=== PATIENT | female | born 1950 | race Caucasian/White ===

== ENCOUNTER 2022-03-10 13:00 | Inpatient (IN) ==
[2022-03-10] MEDS ORDERED: 0.9 % Sodium Chloride 1,000 ML IVC ONE ×3 (13:13→16:11)
[2022-03-10] MEDS ORDERED: Iopamidol - 370 500 ML MLS IVP ONE (13:21)
[2022-03-10 14:00] LABS: Hemoglobin 14.1 g/dL (11.5-15.4)
[2022-03-10 14:05] LABS: Hematocrit 42.1 % (35.3-44.9); Mean Corpuscular HGB Conc 33.5 g/dL (31.6-35.5); Mean Corpuscular Hemoglobin 30.6 pg (28.0-33.3); Mean Corpuscular Volume 91.3 fL (83.0-100.0); Nucleated Red Blood Cells 0.1 /100 WBC (0); Platelet Count 702 K/mcL (140-400); Red Blood Count 4.61 M/mcL (3.82-4.97); Red Cell Distribution Width 13.6 % (11.5-14.5)
[2022-03-10] MEDS ORDERED: Morphine Sulfate 2 MG/ML SYRINGE IVP ONE (14:07)
[2022-03-10] MEDS ORDERED: Ondansetron 4 MG/2 ML VIAL IVP ONE (14:07)
[2022-03-10 14:08] LABS: White Blood Count 30.1 K/mcL (4.3-11.1)
[2022-03-10 14:22] LABS: Albumin 3.3 g/dL (3.5-5.7); Albumin/Globulin Ratio 0.8 (1.1-2.2); Bilirubin,Direct 0.2 mg/dL (0.0-0.2); Bilirubin,Indirect 0.3 mg/dL (0.0-1.0); Bilirubin,Total 0.5 mg/dL (0.3-1.0); Calcium 10.2 mg/dL (8.6-10.3); Globulin 4.4 g/dL (2.4-3.5); Phosphorous 5.6 mg/dL (2.7-4.5); Potassium 4.2 mEq/L (3.5-5.1); Total Protein 7.7 g/dL (6.4-8.9); Troponin I 0.06 ng/mL (< 0.04)
[2022-03-10 14:27] LABS: Monocytes # 4.2 K/mcL (0.0-1.3); Neutrophils # 22.3 K/mcL (1.6-8.9); Platelet Estimate Increased (Normal)
[2022-03-10] MEDS ORDERED: 0.9 % Sodium Chloride 1,000 ML ONE (14:37)
[2022-03-10] MEDS ORDERED: Piperacillin/Tazobactam 3.375 GM in 0.9 % Sodium Chloride Mini Bag 100 ML IVPB ONE (14:46)
[2022-03-10 15:13] LABS: Influenza A PCR Negative (Negative); Influenza B PCR Negative (Negative); Resp. Syncytial Virus PCR Negative (Negative)
[2022-03-10 16:01] LABS: SARS-CoV-2 by PCR (In House) Negative (Negative)
[2022-03-10] MEDS ORDERED: Acetaminophen 325 MG TABLET PO PRN (17:38)
[2022-03-10] MEDS ORDERED: Naloxone 0.4 MG/ML INJ IVP PRN (17:38)
[2022-03-10] MEDS ORDERED: Ondansetron ODT 4 MG TAB.RAPDIS SL PRN (17:38)
[2022-03-10] MEDS ORDERED: *HR* OxyCODONE Immed Rel 5 MG TABLET PO PRN (17:38)
[2022-03-10] MEDS ORDERED: Azithromycin 500 MG in 0.9 % Sodium Chloride 250 ML IVPB SCH (18:00)
[2022-03-10] MEDS ORDERED: Vancomycin (wt based) 1,000 MG VIAL IVPB SCH (18:00)
[2022-03-10] MEDS ORDERED: Vancomycin 1,250 MG/262.5 ML IV.SOLN IVPB ONE (18:00)
[2022-03-10] MEDS ORDERED: cefTRIAXone 1,000 MG in 0.9 % Sodium Chloride 10 ML IVP SCH (18:00)
[2022-03-10] MEDS: 0.9 % Sodium Chloride w KCl 20 MEQ/1,000 ML MLS IVC SCH (18:46)
[2022-03-10 19:18] LABS: Thyroid Stimulating Hormone 2.139 mcIU/mL (0.340-5.600); Troponin I 0.04 ng/mL (< 0.04)
[2022-03-10] MEDS ORDERED: Dextrose Gel 15 GM/37.5 ML TUBE PO PRN ×2 (20:19)
[2022-03-10] MEDS ORDERED: D5% in Water 1,000 ML IVC PRN (20:19)
[2022-03-10] MEDS ORDERED: *HR* Dextrose 50 % in Water (Syg) 50 ML SYRINGE IVP PRN (20:19)
[2022-03-10 20:26] LABS: Amylase,Pleural Fluid 14 Units/L (No Ref Range); Glucose,Pleural Fluid < 10 mg/dL (No Ref Range); LDH,Pleural Fluid > 1200 Units/L (No Ref Range); Total Protein,Pleural Fluid 5.1 g/dL
[2022-03-10] MEDS ORDERED: Dextrose Gel 15 GM/37.5 ML TUBE PO ONE (20:29)
[2022-03-10 20:51] LABS: RBC,Pleural Fluid 3000 RBC/mcL
[2022-03-10 22:41] LABS: Lactate Dehydrogenase 202 Units/L (140-271)
[2022-03-10 23:25] LABS: Appearance of Pleural Fl Hazy (Clear); Basophils,Pleural Fluid 0 %; Eosinophils,Pleural Fluid 0 %; Monocytes,Pleural Fluid 0 %
[2022-03-11 06:00] LABS: Eosinophils % 0.1 %; Hematocrit 34.2 % (35.3-44.9); Immature Granulocytes % 10.3 % (0-4); Lymphocytes # 1.6 K/mcL (0.6-4.6); Lymphocytes % 7.6 %; Mean Corpuscular HGB Conc 32.7 g/dL (31.6-35.5); Mean Corpuscular Hemoglobin 30.1 pg (28.0-33.3); Mean Corpuscular Volume 91.9 fL (83.0-100.0); Mean Platelet Volume 9.2 fL (9.4-12.4); Monocytes # 1.6 K/mcL (0.0-1.3); Monocytes % 7.9 %; Neutrophils # 15.4 K/mcL (1.6-8.9); Platelet Count 505 K/mcL (140-400); Red Blood Count 3.72 M/mcL (3.82-4.97); Red Cell Distribution Width 14.2 % (11.5-14.5); Segmented Neutrophils % 74.1 %; White Blood Count 20.8 K/mcL (4.3-11.1)
[2022-03-11 06:06] LABS: INR 1.2; Prothrombin Time 12.9 Seconds (9.4-12.1)
[2022-03-11 06:25] LABS: Hemoglobin 11.2 g/dL (11.5-15.4)
[2022-03-11 06:35] LABS: Albumin 2.6 g/dL (3.5-5.7); Albumin/Globulin Ratio 0.8 (1.1-2.2); Bilirubin,Total 0.4 mg/dL (0.3-1.0); Calcium 8.7 mg/dL (8.6-10.3); Globulin 3.2 g/dL (2.4-3.5); Magnesium 2.4 mg/dL (1.6-2.6); Phosphorous 4.1 mg/dL (2.7-4.5); Potassium 4.5 mEq/L (3.5-5.1); Total Protein 5.8 g/dL (6.4-8.9); Troponin I 0.25 ng/mL (< 0.04)
[2022-03-11 07:07] LABS: Bacteria,Urine Few per hpf (None-Few); Bilirubin,Urine Negative (Negative); Blood,Urine Negative (Negative); Clarity,Urine Clear (Clear); Color,Urine Light-Yellow (Yellow); Glucose,Urine (UA) Normal (Normal); Ketones,Urine Trace mg/dL (Negative); Leukocyte Esterase,Urine Moderate (Negative); Mucus,Urine Few per lpf (None-Few); Nitrite,Urine Negative (Negative); Protein,Urine 30 mg/dL (Neg-Trace); Specific Gravity,Urine 1.019 (1.010-1.025); Squamous Epithelial Cell,Urine Few per hpf (None-Few); Urobilinogen,Urine Normal (Normal); WBC,Urine 15-30 per hpf (0-3)
[2022-03-11] MEDS: 0.9 % Sodium Chloride w KCl 20 MEQ/1,000 ML MLS IVC SCH (08:16)
[2022-03-11] MEDS ORDERED: Ondansetron 4 MG/2 ML VIAL ONE (08:56)
[2022-03-11] MEDS ORDERED: *HR* Rocuronium Bromide 50 MG/5 ML VIAL ONE ×2 (08:56→11:23)
[2022-03-11] MEDS ORDERED: Lidocaine -MPF 2% 5 ML VIAL ONE (08:56)
[2022-03-11] MEDS ORDERED: *HR* Propofol 200 MG/20 ML VIAL IVP ONE (08:57)
[2022-03-11] MEDS ORDERED: *HR* FentaNYL (PF) 100 MCG/2 ML VIAL ONE (08:57)
[2022-03-11] MEDS ORDERED: Lidocaine HCL 4 ML Topical Solution (Laryng-O-Jet Kit Sterile Pak) TP ONE ×2 (08:59→09:10)
[2022-03-11] MEDS ORDERED: Loratadine 10 MG TABLET PO SCH (09:00)
[2022-03-11] MEDS ORDERED: Ketamine HCL *QUVA* 50mg (1mL) SYRINGE ONE (09:01)
[2022-03-11] MEDS ORDERED: *HR* HYDROmorphone PF 0.5 MG/0.5 ML SYRINGE IVP PRN (09:53)
[2022-03-11] MEDS ORDERED: D5% in Lactated Ringers 1,000 ML IVC ONE (09:55)
[2022-03-11] MEDS ORDERED: EPHEDrine 50 MG/ML VIAL ONE (11:04)
[2022-03-11] MEDS ORDERED: *HR* Phenylephrine 10 MG/ML VIAL ONE (11:05)
[2022-03-11] MEDS ORDERED: Sugammadex Sodium 200 MG/2 ML VIAL IV ONE (11:55)
[2022-03-11] MEDS ORDERED: Albumin Human 5% 12.5 GM/250 ML IV.SOLN ONE ×2 (12:11→12:49)
[2022-03-11] MEDS: Albumin Human 5% 12.5 GM/250 ML IV.SOLN IVC SCH ×4 (12:23→21:05)
[2022-03-11] MEDS ORDERED: Ringers Solution, Lactated 1,000 ML ONE (13:57)
[2022-03-11] MEDS ORDERED: Phenylephrine 20 MG in 0.9 % Sodium Chloride 250 ML IVC SCH (14:00)
[2022-03-11] MEDS ORDERED: Ondansetron 4 MG/2 ML VIAL IVP PRN (15:36)
[2022-03-11] MEDS ORDERED: Gabapentin 300 MG CAPSULE PO SCH (15:36)
[2022-03-11] MEDS ORDERED: Acetaminophen 325 MG TABLET PO PRN (15:36)
[2022-03-11] MEDS ORDERED: D5% in 0.9% NACL 1,000 ML IVC SCH (15:36)
[2022-03-11] MEDS ORDERED: Naloxone 0.4 MG/ML INJ IVP PRN (15:36)
[2022-03-11] MEDS: *HR* OxyCODONE/APAP 7.5/325 TABLET PO PRN ×2 (15:43→22:53)
[2022-03-11] MEDS ORDERED: Ringers Solution, Lactated 1,000 ML IVC ONE (15:47)
[2022-03-11] MEDS: *HR* Heparin 5,000 UNIT/ML VIAL SQ SCH ×2 (16:23→22:31)
[2022-03-11] MEDS: Gabapentin 300 MG CAPSULE PO SCH ×2 (16:23→21:05)
[2022-03-11] MEDS ORDERED: Ampicillin/Sulbactam 3,000 MG in 0.9 % Sodium Chloride Mini Bag 100 ML IVPB SCH (18:00)
[2022-03-11] MEDS: Ampicillin/Sulbactam 3,000 MG in 0.9 % Sodium Chloride Mini Bag 100 ML IVPB SCH (18:04)
[2022-03-11] MEDS ORDERED: Famotidine 20 MG TABLET PO SCH (21:00)
[2022-03-11] MEDS: Sennosides/Docusate Sodium TABLET PO SCH (21:05)
[2022-03-12] MEDS: Ringers Solution, Lactated 1,000 ML IVC SCH ×2 (01:49→15:06)
[2022-03-12] MEDS: Phenylephrine 20 MG in 0.9 % Sodium Chloride 250 ML IVC SCH ×2 (02:50→07:40)
[2022-03-12 03:43] LABS: VBG Ionized Calcium 1.31 mmol/L (1.15-1.35)
[2022-03-12 04:17] LABS: INR 1.2; Prothrombin Time 13.3 Seconds (9.4-12.1)
[2022-03-12 04:19] LABS: Activated Partial Thrombo Time 28.4 Seconds (26.0-36.0); Mean Corpuscular HGB Conc 31.6 g/dL (31.6-35.5); Mean Platelet Volume 8.9 fL (9.4-12.4)
[2022-03-12 04:20] LABS: Hematocrit 31.3 % (35.3-44.9); Hemoglobin 9.9 g/dL (11.5-15.4); Mean Corpuscular Hemoglobin 30.5 pg (28.0-33.3); Mean Corpuscular Volume 96.3 fL (83.0-100.0); Platelet Count 593 K/mcL (140-400); Red Blood Count 3.25 M/mcL (3.82-4.97); Red Cell Distribution Width 14.7 % (11.5-14.5)
[2022-03-12 04:22] LABS: Calcium 8.9 mg/dL (8.6-10.3); Magnesium 2.2 mg/dL (1.6-2.6); Phosphorous 3.8 mg/dL (2.7-4.5); Potassium 4.8 mEq/L (3.5-5.1)
[2022-03-12 04:33] LABS: White Blood Count 40.5 K/mcL (4.3-11.1)
[2022-03-12] MEDS: Ampicillin/Sulbactam 3,000 MG in 0.9 % Sodium Chloride Mini Bag 100 ML IVPB SCH ×4 (05:11→23:44)
[2022-03-12] MEDS: *HR* Heparin 5,000 UNIT/ML VIAL SQ SCH ×3 (05:11→22:15)
[2022-03-12] MEDS: *HR* OxyCODONE/APAP 7.5/325 TABLET PO PRN ×3 (05:51→19:58)
[2022-03-12 08:15] LABS: Troponin I 0.34 ng/mL (< 0.04)
[2022-03-12] MEDS: Sennosides/Docusate Sodium TABLET PO SCH ×2 (08:32→19:57)
[2022-03-12] MEDS: Famotidine 20 MG TABLET PO SCH (08:32)
[2022-03-12] MEDS: Loratadine 10 MG TABLET PO SCH (08:32)
[2022-03-12] MEDS: Gabapentin 300 MG CAPSULE PO SCH ×3 (08:32→19:58)
[2022-03-12] MEDS ORDERED: 0.9 % Sodium Chloride 500 ML IVC ONE (14:02)
[2022-03-13 04:27] LABS: Mean Corpuscular HGB Conc 31.1 g/dL (31.6-35.5)
[2022-03-13 04:29] LABS: Hematocrit 28.3 % (35.3-44.9); Hemoglobin 8.8 g/dL (11.5-15.4); Mean Corpuscular Volume 96.6 fL (83.0-100.0); Mean Platelet Volume 8.7 fL (9.4-12.4); Monocytes # 1.1 K/mcL (0.0-1.3); Platelet Count 385 K/mcL (140-400); Red Blood Count 2.93 M/mcL (3.82-4.97); White Blood Count 27.1 K/mcL (4.3-11.1)
[2022-03-13 04:47] LABS: Albumin 2.5 g/dL (3.5-5.7); Bilirubin,Total 0.4 mg/dL (0.3-1.0); Calcium 8.8 mg/dL (8.6-10.3); Globulin 2.5 g/dL (2.4-3.5); Magnesium 1.9 mg/dL (1.6-2.6); Phosphorous 1.7 mg/dL (2.7-4.5); Potassium 4.4 mEq/L (3.5-5.1)
[2022-03-13] MEDS ORDERED: Potassium Phosphate 44 MEQ in 0.9 % Sodium Chloride 250 ML IVPB PRN (04:57)
[2022-03-13 05:04] LABS: Lymphocytes # 1.6 K/mcL (0.6-4.6); Neutrophils # 23.3 K/mcL (1.6-8.9)
[2022-03-13] MEDS: Ampicillin/Sulbactam 3,000 MG in 0.9 % Sodium Chloride Mini Bag 100 ML IVPB SCH ×3 (05:28→17:27)
[2022-03-13] MEDS: *HR* Heparin 5,000 UNIT/ML VIAL SQ SCH ×3 (05:28→20:54)
[2022-03-13] MEDS: Gabapentin 300 MG CAPSULE PO SCH ×3 (08:24→19:55)
[2022-03-13] MEDS: Famotidine 20 MG TABLET PO SCH (08:24)
[2022-03-13] MEDS: Sennosides/Docusate Sodium TABLET PO SCH ×2 (08:24→19:55)
[2022-03-13] MEDS: *HR* OxyCODONE/APAP 7.5/325 TABLET PO PRN ×3 (08:24→20:06)
[2022-03-13] MEDS: Loratadine 10 MG TABLET PO SCH (08:25)
[2022-03-13] MEDS ORDERED: Aspirin Enteric Coated 81 MG Tablet PO SCH (09:00)
[2022-03-13] MEDS ORDERED: lisinopriL 10 MG TABLET PO ONE (09:03)
[2022-03-14] MEDS ORDERED: Acetaminophen 325 MG TABLET PO PRN (00:33)
[2022-03-14] MEDS ORDERED: Naloxone 0.4 MG/ML INJ IVP PRN (00:33)
[2022-03-14] MEDS ORDERED: Ondansetron 4 MG/2 ML VIAL IVP PRN (00:33)
[2022-03-14] MEDS: Ampicillin/Sulbactam 3,000 MG in 0.9 % Sodium Chloride Mini Bag 100 ML IVPB SCH ×6 (01:06→23:10)
[2022-03-14 04:43] LABS: Eosinophils % 0.6 %; Red Cell Distribution Width 14.8 % (11.5-14.5)
[2022-03-14 04:45] LABS: Eosinophils # 0.2 K/mcL (0.0-0.6); Hemoglobin 8.7 g/dL (11.5-15.4); Immature Granulocytes % 15.2 % (0-4); Lymphocytes # 2.2 K/mcL (0.6-4.6); Lymphocytes % 7.1 %; Mean Corpuscular HGB Conc 31.1 g/dL (31.6-35.5); Mean Corpuscular Hemoglobin 29.9 pg (28.0-33.3); Mean Corpuscular Volume 96.2 fL (83.0-100.0); Monocytes # 1.1 K/mcL (0.0-1.3); Monocytes % 3.7 %; Platelet Count 358 K/mcL (140-400); Red Blood Count 2.91 M/mcL (3.82-4.97); Segmented Neutrophils % 73.4 %
[2022-03-14 04:54] LABS: Neutrophils # 22.2 K/mcL (1.6-8.9)
[2022-03-14 04:55] LABS: White Blood Count 30.3 K/mcL (4.3-11.1)
[2022-03-14 04:56] LABS: Platelet Estimate Normal (Normal)
[2022-03-14 05:01] LABS: Alanine Aminotransferase 70 Units/L (7-52); Albumin 2.4 g/dL (3.5-5.7); Alkaline Phosphatase 69 Units/L (34-104); Aspartate Amino Transferase 57 Units/L (13-39); BUN/Creatinine Ratio 37 (6-26); Bilirubin,Total 0.4 mg/dL (0.3-1.0); Blood Urea Nitrogen 26 mg/dL (8-23); Calcium 8.9 mg/dL (8.6-10.3); Carbon Dioxide 28 mEq/L (23-29); Chloride 108 mEq/L (98-107); Globulin 2.5 g/dL (2.4-3.5); Glucose 94 mg/dL (70-105); Osmolality,Calculated 291 (280-300); Phosphorous 2.1 mg/dL (2.7-4.5); Potassium 4.3 mEq/L (3.5-5.1); Sodium 138 mEq/L (136-145); Total Protein 4.9 g/dL (6.4-8.9)
[2022-03-14 05:10] LABS: VBG Ionized Calcium 1.33 mmol/L (1.15-1.35)
[2022-03-14] MEDS: *HR* Heparin 5,000 UNIT/ML VIAL SQ SCH ×3 (05:35→21:31)
[2022-03-14] MEDS: Famotidine 20 MG TABLET PO SCH (05:35)
[2022-03-14] MEDS: *HR* OxyCODONE/APAP 7.5/325 TABLET PO PRN ×4 (05:45→19:50)
[2022-03-14] MEDS: Aspirin Enteric Coated 81 MG Tablet PO SCH (08:45)
[2022-03-14] MEDS: Sennosides/Docusate Sodium TABLET PO SCH ×2 (08:45→19:50)
[2022-03-14] MEDS: Loratadine 10 MG TABLET PO SCH (08:45)
[2022-03-14] MEDS: Gabapentin 300 MG CAPSULE PO SCH ×3 (08:46→19:50)
[2022-03-15 04:38] LABS: Fluid Source for Cholesterol PLEURAL FLUID; Fluid Source for Triglycerides PLEURAL FLUID
[2022-03-15] MEDS: *HR* OxyCODONE/APAP 7.5/325 TABLET PO PRN ×3 (05:14→19:39)
[2022-03-15] MEDS: Ampicillin/Sulbactam 3,000 MG in 0.9 % Sodium Chloride Mini Bag 100 ML IVPB SCH (05:14)
[2022-03-15] MEDS: *HR* Heparin 5,000 UNIT/ML VIAL SQ SCH ×3 (05:14→22:24)
[2022-03-15] MEDS: Famotidine 20 MG TABLET PO SCH (05:14)
[2022-03-15 05:24] LABS: Red Blood Count 3.02 M/mcL (3.82-4.97); Red Cell Distribution Width 14.7 % (11.5-14.5)
[2022-03-15 05:25] LABS: Hematocrit 29.2 % (35.3-44.9); Hemoglobin 9.2 g/dL (11.5-15.4); Mean Corpuscular HGB Conc 31.5 g/dL (31.6-35.5); Mean Corpuscular Hemoglobin 30.5 pg (28.0-33.3); Mean Corpuscular Volume 96.7 fL (83.0-100.0); Mean Platelet Volume 9.4 fL (9.4-12.4); Platelet Count 433 K/mcL (140-400)
[2022-03-15 05:41] LABS: Alanine Aminotransferase 103 Units/L (7-52); Albumin 2.5 g/dL (3.5-5.7); Albumin/Globulin Ratio 0.8 (1.1-2.2); Alkaline Phosphatase 88 Units/L (34-104); Aspartate Amino Transferase 75 Units/L (13-39); BUN/Creatinine Ratio 28 (6-26); Bilirubin,Total 0.5 mg/dL (0.3-1.0); Blood Urea Nitrogen 17 mg/dL (8-23); Calcium 9.2 mg/dL (8.6-10.3); Carbon Dioxide 28 mEq/L (23-29); Chloride 103 mEq/L (98-107); Globulin 3.1 g/dL (2.4-3.5); Glucose 107 mg/dL (70-105); Magnesium 1.8 mg/dL (1.6-2.6); Osmolality,Calculated 286 (280-300); Potassium 4.4 mEq/L (3.5-5.1); Sodium 137 mEq/L (136-145); Total Protein 5.6 g/dL (6.4-8.9); White Blood Count 35.4 K/mcL (4.3-11.1)
[2022-03-15 05:51] LABS: Platelet Estimate Normal (Normal)
[2022-03-15 05:52] LABS: Monocytes # 2.1 K/mcL (0.0-1.3); Neutrophils # 33.3 K/mcL (1.6-8.9); Stomatocytes 1+ (Not Present)
[2022-03-15] MEDS: Aspirin Enteric Coated 81 MG Tablet PO SCH (09:05)
[2022-03-15] MEDS: Loratadine 10 MG TABLET PO SCH (09:05)
[2022-03-15] MEDS: Gabapentin 300 MG CAPSULE PO SCH ×3 (09:05→19:39)
[2022-03-15] MEDS: Sennosides/Docusate Sodium TABLET PO SCH ×2 (09:05→19:39)
[2022-03-15 11:16] LABS: Cholesterol,Body Fluid 68 mg/dL; Triglycerides,Body Fluid 52 mg/dL
[2022-03-15] MEDS: Cefepime HCl 2,000 MG in 0.9 % Sodium Chloride 10 ML IVP SCH ×2 (11:52→19:38)
[2022-03-16] MEDS: Cefepime HCl 2,000 MG in 0.9 % Sodium Chloride 10 ML IVP SCH ×2 (03:35→12:10)
[2022-03-16 03:45] LABS: Red Cell Distribution Width 14.4 % (11.5-14.5)
[2022-03-16 03:46] LABS: Hematocrit 27.9 % (35.3-44.9); Mean Corpuscular HGB Conc 32.3 g/dL (31.6-35.5); Mean Corpuscular Hemoglobin 30.7 pg (28.0-33.3); Mean Corpuscular Volume 95.2 fL (83.0-100.0); Mean Platelet Volume 9.3 fL (9.4-12.4); Monocytes # 1.7 K/mcL (0.0-1.3); Platelet Count 394 K/mcL (140-400); Red Blood Count 2.93 M/mcL (3.82-4.97); White Blood Count 28.9 K/mcL (4.3-11.1)
[2022-03-16 04:05] LABS: Lymphocytes # 1.2 K/mcL (0.6-4.6); Platelet Estimate Normal (Normal)
[2022-03-16 04:06] LABS: Alanine Aminotransferase 102 Units/L (7-52); Albumin 2.4 g/dL (3.5-5.7); Albumin/Globulin Ratio 0.8 (1.1-2.2); Alkaline Phosphatase 95 Units/L (34-104); Aspartate Amino Transferase 68 Units/L (13-39); BUN/Creatinine Ratio 23 (6-26); Bilirubin,Total 0.5 mg/dL (0.3-1.0); Blood Urea Nitrogen 14 mg/dL (8-23); Calcium 8.9 mg/dL (8.6-10.3); Carbon Dioxide 29 mEq/L (23-29); Chloride 101 mEq/L (98-107); Globulin 2.9 g/dL (2.4-3.5); Glucose 104 mg/dL (70-105); Magnesium 1.6 mg/dL (1.6-2.6); Osmolality,Calculated 279 (280-300); Sodium 134 mEq/L (136-145); Total Protein 5.3 g/dL (6.4-8.9)
[2022-03-16] MEDS: Famotidine 20 MG TABLET PO SCH (06:15)
[2022-03-16] MEDS: *HR* Heparin 5,000 UNIT/ML VIAL SQ SCH ×3 (06:15→22:43)
[2022-03-16] MEDS: Sennosides/Docusate Sodium TABLET PO SCH ×2 (08:28→19:48)
[2022-03-16] MEDS: Loratadine 10 MG TABLET PO SCH (08:28)
[2022-03-16] MEDS: Gabapentin 300 MG CAPSULE PO SCH ×3 (08:28→19:48)
[2022-03-16] MEDS: Aspirin Enteric Coated 81 MG Tablet PO SCH (08:29)
[2022-03-16] MEDS: *HR* OxyCODONE/APAP 7.5/325 TABLET PO PRN ×2 (08:29→22:04)
[2022-03-16] MEDS: cefTRIAXone 2,000 MG in 0.9 % Sodium Chloride 20 ML IVP SCH (19:47)
[2022-03-17] MEDS: *HR* OxyCODONE/APAP 7.5/325 TABLET PO PRN ×2 (07:55→12:42)
[2022-03-17] MEDS: Sennosides/Docusate Sodium TABLET PO SCH ×2 (07:55→20:34)
[2022-03-17] MEDS: Gabapentin 300 MG CAPSULE PO SCH ×3 (07:55→20:31)
[2022-03-17] MEDS: Aspirin Enteric Coated 81 MG Tablet PO SCH (07:55)
[2022-03-17] MEDS: Loratadine 10 MG TABLET PO SCH (07:55)
[2022-03-17] MEDS: Famotidine 20 MG TABLET PO SCH (07:56)
[2022-03-17] MEDS: *HR* Heparin 5,000 UNIT/ML VIAL SQ SCH ×3 (07:56→20:32)
[2022-03-17 11:27] LABS: Hematocrit 23.6 % (35.3-44.9); Hemoglobin 7.7 g/dL (11.5-15.4); Mean Corpuscular HGB Conc 32.6 g/dL (31.6-35.5); Mean Corpuscular Hemoglobin 30.6 pg (28.0-33.3); Mean Corpuscular Volume 93.7 fL (83.0-100.0); Mean Platelet Volume 10.5 fL (9.4-12.4); Nucleated Red Blood Cells 0.1 /100 WBC (0); Platelet Count 403 K/mcL (140-400); Red Blood Count 2.52 M/mcL (3.82-4.97); Red Cell Distribution Width 14.2 % (11.5-14.5); White Blood Count 26.6 K/mcL (4.3-11.1)
[2022-03-17 11:41] LABS: Alanine Aminotransferase 103 Units/L (7-52); Albumin 2.1 g/dL (3.5-5.7); Albumin/Globulin Ratio 0.8 (1.1-2.2); Alkaline Phosphatase 112 Units/L (34-104); Aspartate Amino Transferase 72 Units/L (13-39); BUN/Creatinine Ratio 16 (6-26); Bilirubin,Total 0.6 mg/dL (0.3-1.0); Blood Urea Nitrogen 9 mg/dL (8-23); Calcium 8.3 mg/dL (8.6-10.3); Carbon Dioxide 28 mEq/L (23-29); Chloride 97 mEq/L (98-107); Globulin 2.7 g/dL (2.4-3.5); Glucose 101 mg/dL (70-105); Magnesium 1.4 mg/dL (1.6-2.6); Osmolality,Calculated 269 (280-300); Sodium 130 mEq/L (136-145); Total Protein 4.8 g/dL (6.4-8.9)
[2022-03-17 11:43] LABS: Eosinophils # 0.3 K/mcL (0.0-0.6); Lymphocytes # 1.3 K/mcL (0.6-4.6); Monocytes # 1.3 K/mcL (0.0-1.3); Neutrophils # 23.7 K/mcL (1.6-8.9)
[2022-03-17 11:44] LABS: Platelet Estimate Normal (Normal)
[2022-03-17] MEDS: cefTRIAXone 2,000 MG in 0.9 % Sodium Chloride 20 ML IVP SCH (20:31)
[2022-03-17] MEDS: *HR* HYDROcodone/Acet 5/325 mg TABLET PO PRN (20:34)
[2022-03-18] MEDS: *HR* Heparin 5,000 UNIT/ML VIAL SQ SCH ×3 (05:06→19:57)
[2022-03-18] MEDS: Famotidine 20 MG TABLET PO SCH (05:07)
[2022-03-18] MEDS: *HR* HYDROcodone/Acet 5/325 mg TABLET PO PRN ×4 (05:07→19:56)
[2022-03-18 05:54] LABS: Basophils # 0.1 K/mcL (0.0-0.2); Basophils % 0.3 %; Eosinophils # 0.1 K/mcL (0.0-0.6); Eosinophils % 0.5 %; Hematocrit 28.4 % (35.3-44.9); Hemoglobin 9.2 g/dL (11.5-15.4); Lymphocytes # 1.5 K/mcL (0.6-4.6); Lymphocytes % 6.6 %; Mean Corpuscular HGB Conc 32.4 g/dL (31.6-35.5); Mean Corpuscular Volume 92.5 fL (83.0-100.0); Mean Platelet Volume 9.6 fL (9.4-12.4); Monocytes # 1.7 K/mcL (0.0-1.3); Monocytes % 7.6 %; Neutrophils # 18.5 K/mcL (1.6-8.9); Platelet Count 438 K/mcL (140-400); Red Blood Count 3.07 M/mcL (3.82-4.97); White Blood Count 22.3 K/mcL (4.3-11.1)
[2022-03-18 06:10] LABS: BUN/Creatinine Ratio 14 (6-26); Blood Urea Nitrogen 8 mg/dL (8-23); Calcium 8.7 mg/dL (8.6-10.3); Carbon Dioxide 28 mEq/L (23-29); Chloride 94 mEq/L (98-107); Glucose 98 mg/dL (70-105); Osmolality,Calculated 262 (280-300); Potassium 3.9 mEq/L (3.5-5.1); Sodium 127 mEq/L (136-145)
[2022-03-18] MEDS: Aspirin Enteric Coated 81 MG Tablet PO SCH (08:44)
[2022-03-18] MEDS: Loratadine 10 MG TABLET PO SCH (08:44)
[2022-03-18] MEDS: Gabapentin 300 MG CAPSULE PO SCH ×3 (08:44→19:56)
[2022-03-18] MEDS: Sennosides/Docusate Sodium TABLET PO SCH ×2 (08:44→19:56)
[2022-03-18] MEDS: cefTRIAXone 2,000 MG in 0.9 % Sodium Chloride 20 ML IVP SCH (19:55)
[2022-03-19] MEDS: *HR* HYDROcodone/Acet 5/325 mg TABLET PO PRN ×5 (01:18→21:33)
[2022-03-19 04:55] LABS: Basophils # 0.1 K/mcL (0.0-0.2); Basophils % 0.4 %; Eosinophils # 0.2 K/mcL (0.0-0.6); Hematocrit 22.4 % (35.3-44.9); Lymphocytes # 1.6 K/mcL (0.6-4.6); Lymphocytes % 9.7 %; Mean Corpuscular HGB Conc 32.1 g/dL (31.6-35.5); Mean Corpuscular Volume 93.3 fL (83.0-100.0); Monocytes # 1.5 K/mcL (0.0-1.3); Monocytes % 9.2 %; Neutrophils # 12.6 K/mcL (1.6-8.9); Platelet Count 364 K/mcL (140-400); Red Cell Distribution Width 13.9 % (11.5-14.5); Segmented Neutrophils % 77.7 %; White Blood Count 16.2 K/mcL (4.3-11.1)
[2022-03-19 04:58] LABS: Hemoglobin 7.2 g/dL (11.5-15.4)
[2022-03-19 05:22] LABS: BUN/Creatinine Ratio 13 (6-26); Blood Urea Nitrogen 8 mg/dL (8-23); Calcium 8.4 mg/dL (8.6-10.3); Carbon Dioxide 26 mEq/L (23-29); Chloride 97 mEq/L (98-107); Glucose 92 mg/dL (70-105); Osmolality,Calculated 268 (280-300); Potassium 3.6 mEq/L (3.5-5.1); Sodium 130 mEq/L (136-145)
[2022-03-19] MEDS: *HR* Heparin 5,000 UNIT/ML VIAL SQ SCH ×3 (06:03→21:24)
[2022-03-19] MEDS: Famotidine 20 MG TABLET PO SCH (06:33)
[2022-03-19] MEDS: Gabapentin 300 MG CAPSULE PO SCH ×3 (07:47→21:24)
[2022-03-19] MEDS: Loratadine 10 MG TABLET PO SCH (07:47)
[2022-03-19] MEDS: Aspirin Enteric Coated 81 MG Tablet PO SCH (07:47)
[2022-03-19] MEDS: Sennosides/Docusate Sodium TABLET PO SCH (07:48)
[2022-03-19 10:39] LABS: Hemoglobin 7.9 g/dL (11.5-15.4)
[2022-03-19 10:42] LABS: Basophils % 0.2 %; Eosinophils # 0.1 K/mcL (0.0-0.6); Eosinophils % 0.5 %; Immature Granulocytes % 1.7 % (0-4); Lymphocytes # 1.3 K/mcL (0.6-4.6); Lymphocytes % 6.5 %; Mean Corpuscular HGB Conc 32.9 g/dL (31.6-35.5); Mean Corpuscular Hemoglobin 30.3 pg (28.0-33.3); Mean Platelet Volume 9.8 fL (9.4-12.4); Monocytes # 2.1 K/mcL (0.0-1.3); Monocytes % 10.4 %; Neutrophils # 16.2 K/mcL (1.6-8.9); Platelet Count 468 K/mcL (140-400); Red Blood Count 2.61 M/mcL (3.82-4.97); Segmented Neutrophils % 80.7 %
[2022-03-19] MEDS: cefTRIAXone 2,000 MG in 0.9 % Sodium Chloride 20 ML IVP SCH (21:24)
[2022-03-20 02:11] LABS: Basophils % 0.3 %; Eosinophils # 0.1 K/mcL (0.0-0.6); Eosinophils % 1.1 %; Hematocrit 23.5 % (35.3-44.9); Hemoglobin 7.6 g/dL (11.5-15.4); Immature Granulocytes % 1.3 % (0-4); Lymphocytes # 1.3 K/mcL (0.6-4.6); Lymphocytes % 10.2 %; Mean Corpuscular HGB Conc 32.3 g/dL (31.6-35.5); Mean Corpuscular Hemoglobin 30.3 pg (28.0-33.3); Mean Corpuscular Volume 93.6 fL (83.0-100.0); Mean Platelet Volume 9.5 fL (9.4-12.4); Monocytes # 1.3 K/mcL (0.0-1.3); Monocytes % 10.2 %; Platelet Count 408 K/mcL (140-400); Red Blood Count 2.51 M/mcL (3.82-4.97); Segmented Neutrophils % 76.9 %
[2022-03-20 02:32] LABS: BUN/Creatinine Ratio 11 (6-26); Blood Urea Nitrogen 8 mg/dL (8-23); Calcium 8.6 mg/dL (8.6-10.3); Carbon Dioxide 27 mEq/L (23-29); Chloride 95 mEq/L (98-107); Glucose 90 mg/dL (70-105); Osmolality,Calculated 262 (280-300); Potassium 4.2 mEq/L (3.5-5.1); Sodium 127 mEq/L (136-145)
[2022-03-20] MEDS: Sennosides/Docusate Sodium TABLET PO SCH ×3 (04:28→21:22)
[2022-03-20] MEDS: *HR* Heparin 5,000 UNIT/ML VIAL SQ SCH ×3 (05:28→21:22)
[2022-03-20] MEDS: Famotidine 20 MG TABLET PO SCH (05:29)
[2022-03-20] MEDS: *HR* HYDROcodone/Acet 5/325 mg TABLET PO PRN ×3 (05:34→21:25)
[2022-03-20] MEDS: Gabapentin 300 MG CAPSULE PO SCH ×3 (08:36→21:22)
[2022-03-20] MEDS: Aspirin Enteric Coated 81 MG Tablet PO SCH (08:36)
[2022-03-20] MEDS: Loratadine 10 MG TABLET PO SCH (08:36)
[2022-03-20] MEDS: cefTRIAXone 2,000 MG in 0.9 % Sodium Chloride 20 ML IVP SCH (21:22)
[2022-03-21 06:28] LABS: Basophils % 0.2 %; Eosinophils # 0.1 K/mcL (0.0-0.6); Eosinophils % 0.8 %; Hematocrit 23.2 % (35.3-44.9); Hemoglobin 7.5 g/dL (11.5-15.4); Immature Granulocytes % 0.8 % (0-4); Lymphocytes # 1.3 K/mcL (0.6-4.6); Lymphocytes % 8.6 %; Mean Corpuscular HGB Conc 32.3 g/dL (31.6-35.5); Mean Corpuscular Hemoglobin 30.6 pg (28.0-33.3); Mean Corpuscular Volume 94.7 fL (83.0-100.0); Mean Platelet Volume 9.3 fL (9.4-12.4); Monocytes # 1.4 K/mcL (0.0-1.3); Monocytes % 9.3 %; Neutrophils # 11.7 K/mcL (1.6-8.9); Platelet Count 479 K/mcL (140-400); Red Blood Count 2.45 M/mcL (3.82-4.97); Red Cell Distribution Width 13.9 % (11.5-14.5); Segmented Neutrophils % 80.3 %; White Blood Count 14.6 K/mcL (4.3-11.1)
[2022-03-21 06:48] LABS: Calcium 8.7 mg/dL (8.6-10.3); Potassium 3.8 mEq/L (3.5-5.1)
[2022-03-21] MEDS: *HR* Heparin 5,000 UNIT/ML VIAL SQ SCH ×3 (06:48→20:10)
[2022-03-21] MEDS: Famotidine 20 MG TABLET PO SCH (06:54)
[2022-03-21] MEDS: Sennosides/Docusate Sodium TABLET PO SCH ×2 (07:52→20:10)
[2022-03-21] MEDS: Aspirin Enteric Coated 81 MG Tablet PO SCH (07:52)
[2022-03-21] MEDS: Gabapentin 300 MG CAPSULE PO SCH ×3 (07:52→20:10)
[2022-03-21] MEDS: Loratadine 10 MG TABLET PO SCH (07:52)
[2022-03-21 10:18] LABS: Folate 15.4 ng/mL (3.0-16.0)
[2022-03-21 10:20] LABS: Ferritin 887 ng/mL (10-120); Iron < 10 mcg/dL (50-170); Transferrin 116 mg/dL (203-362)
[2022-03-21] MEDS: *HR* HYDROcodone/Acet 5/325 mg TABLET PO PRN ×2 (11:49→20:10)
[2022-03-21] MEDS: cefTRIAXone 2,000 MG in 0.9 % Sodium Chloride 20 ML IVP SCH (21:20)
[2022-03-22] MEDS: Famotidine 20 MG TABLET PO SCH (05:28)
[2022-03-22] MEDS: *HR* Heparin 5,000 UNIT/ML VIAL SQ SCH ×3 (05:28→20:38)
[2022-03-22] MEDS: *HR* HYDROcodone/Acet 5/325 mg TABLET PO PRN ×2 (08:20→19:41)
[2022-03-22] MEDS: Gabapentin 300 MG CAPSULE PO SCH ×3 (08:20→20:38)
[2022-03-22] MEDS: Aspirin Enteric Coated 81 MG Tablet PO SCH (08:21)
[2022-03-22] MEDS: Loratadine 10 MG TABLET PO SCH (08:21)
[2022-03-22] MEDS: Sennosides/Docusate Sodium TABLET PO SCH ×2 (08:21→20:38)
[2022-03-22 10:47] LABS: Basophils % 0.2 %; Eosinophils # 0.1 K/mcL (0.0-0.6); Eosinophils % 0.4 %; Hemoglobin 6.5 g/dL (11.5-15.4); Immature Granulocytes % 0.6 % (0-4); Lymphocytes # 1.3 K/mcL (0.6-4.6); Lymphocytes % 9.9 %; Mean Corpuscular HGB Conc 32.5 g/dL (31.6-35.5); Mean Corpuscular Hemoglobin 30.4 pg (28.0-33.3); Mean Corpuscular Volume 93.5 fL (83.0-100.0); Mean Platelet Volume 8.7 fL (9.4-12.4); Monocytes # 1.2 K/mcL (0.0-1.3); Monocytes % 8.9 %; Neutrophils # 10.7 K/mcL (1.6-8.9); Platelet Count 407 K/mcL (140-400); Red Blood Count 2.14 M/mcL (3.82-4.97); Red Cell Distribution Width 13.9 % (11.5-14.5); White Blood Count 13.4 K/mcL (4.3-11.1)
[2022-03-22] MEDS: Ferrous Sulfate Oral Soln 300 MG/5 ML UDC PO SCH (15:01)
[2022-03-22] MEDS: cefTRIAXone 2,000 MG in 0.9 % Sodium Chloride 20 ML IVP SCH (20:48)
[2022-03-22] MEDS ORDERED: 0.9 % Sodium Chloride 250 ML ONE (22:39)
[2022-03-23 03:03] LABS: Basophils % 0.4 %; Eosinophils # 0.1 K/mcL (0.0-0.6); Eosinophils % 0.8 %; Hemoglobin 7.2 g/dL (11.5-15.4); Immature Granulocytes % 1.1 % (0-4); Lymphocytes # 1.6 K/mcL (0.6-4.6); Lymphocytes % 16.7 %; Mean Corpuscular HGB Conc 32.7 g/dL (31.6-35.5); Mean Corpuscular Hemoglobin 30.8 pg (28.0-33.3); Mean Platelet Volume 8.8 fL (9.4-12.4); Monocytes # 0.9 K/mcL (0.0-1.3); Monocytes % 9.5 %; Neutrophils # 6.9 K/mcL (1.6-8.9); Platelet Count 422 K/mcL (140-400); Red Blood Count 2.34 M/mcL (3.82-4.97); Red Cell Distribution Width 14.4 % (11.5-14.5); Segmented Neutrophils % 71.5 %; White Blood Count 9.7 K/mcL (4.3-11.1)
[2022-03-23 03:22] LABS: Albumin/Globulin Ratio 0.7 (1.1-2.2); Bilirubin,Total 0.5 mg/dL (0.3-1.0); Calcium 8.1 mg/dL (8.6-10.3); Potassium 3.8 mEq/L (3.5-5.1)
[2022-03-23] MEDS: *HR* Heparin 5,000 UNIT/ML VIAL SQ SCH (06:03)
[2022-03-23] MEDS: Famotidine 20 MG TABLET PO SCH (06:03)
[2022-03-23] MEDS: Sennosides/Docusate Sodium TABLET PO SCH ×2 (07:42→20:45)
[2022-03-23] MEDS: Aspirin Enteric Coated 81 MG Tablet PO SCH (07:42)
[2022-03-23] MEDS: Gabapentin 300 MG CAPSULE PO SCH ×3 (07:42→20:45)
[2022-03-23] MEDS: *HR* HYDROcodone/Acet 5/325 mg TABLET PO PRN ×2 (07:42→20:51)
[2022-03-23] MEDS: Ferrous Sulfate Oral Soln 300 MG/5 ML UDC PO SCH ×3 (07:42→20:45)
[2022-03-23] MEDS: Loratadine 10 MG TABLET PO SCH (07:43)
[2022-03-23] MEDS: cefTRIAXone 2,000 MG in 0.9 % Sodium Chloride 20 ML IVP SCH (20:45)
[2022-03-24 05:33] LABS: Basophils % 0.5 %; Eosinophils # 0.1 K/mcL (0.0-0.6); Eosinophils % 1.4 %; Hematocrit 21.8 % (35.3-44.9); Hemoglobin 7.2 g/dL (11.5-15.4); Immature Granulocytes % 0.8 % (0-4); Lymphocytes # 1.3 K/mcL (0.6-4.6); Lymphocytes % 17.2 %; Mean Corpuscular Hemoglobin 31.3 pg (28.0-33.3); Mean Corpuscular Volume 94.8 fL (83.0-100.0); Mean Platelet Volume 9.1 fL (9.4-12.4); Monocytes # 0.9 K/mcL (0.0-1.3); Monocytes % 10.9 %; Neutrophils # 5.4 K/mcL (1.6-8.9); Platelet Count 441 K/mcL (140-400); Red Cell Distribution Width 14.4 % (11.5-14.5); Segmented Neutrophils % 69.2 %; White Blood Count 7.8 K/mcL (4.3-11.1)
[2022-03-24 06:02] LABS: Calcium 8.4 mg/dL (8.6-10.3)
[2022-03-24] MEDS: Famotidine 20 MG TABLET PO SCH (06:03)
[2022-03-24] MEDS: Gabapentin 300 MG CAPSULE PO SCH ×3 (08:46→20:43)
[2022-03-24] MEDS: Loratadine 10 MG TABLET PO SCH (08:46)
[2022-03-24] MEDS: Ferrous Sulfate Oral Soln 300 MG/5 ML UDC PO SCH (08:46)
[2022-03-24] MEDS: Aspirin Enteric Coated 81 MG Tablet PO SCH (08:46)
[2022-03-24] MEDS: Sennosides/Docusate Sodium TABLET PO SCH ×2 (08:46→20:44)
[2022-03-24] MEDS: *HR* HYDROcodone/Acet 5/325 mg TABLET PO PRN ×2 (08:53→20:43)
[2022-03-24] MEDS: cefTRIAXone 2,000 MG in 0.9 % Sodium Chloride 20 ML IVP SCH (20:45)
[2022-03-25 02:57] LABS: Basophils % 0.5 %; Eosinophils # 0.1 K/mcL (0.0-0.6); Eosinophils % 1.8 %; Hematocrit 23.1 % (35.3-44.9); Hemoglobin 7.5 g/dL (11.5-15.4); Immature Granulocytes % 0.8 % (0-4); Lymphocytes # 1.5 K/mcL (0.6-4.6); Lymphocytes % 20.8 %; Mean Corpuscular HGB Conc 32.5 g/dL (31.6-35.5); Mean Corpuscular Hemoglobin 30.9 pg (28.0-33.3); Mean Corpuscular Volume 95.1 fL (83.0-100.0); Mean Platelet Volume 8.9 fL (9.4-12.4); Monocytes # 0.7 K/mcL (0.0-1.3); Monocytes % 9.4 %; Neutrophils # 4.9 K/mcL (1.6-8.9); Platelet Count 382 K/mcL (140-400); Red Blood Count 2.43 M/mcL (3.82-4.97); Red Cell Distribution Width 14.4 % (11.5-14.5); Segmented Neutrophils % 66.7 %; White Blood Count 7.3 K/mcL (4.3-11.1)
[2022-03-25 03:14] LABS: Albumin 2.2 g/dL (3.5-5.7); Albumin/Globulin Ratio 0.7 (1.1-2.2); Bilirubin,Total 0.3 mg/dL (0.3-1.0); Calcium 8.5 mg/dL (8.6-10.3); Globulin 3.2 g/dL (2.4-3.5); Total Protein 5.4 g/dL (6.4-8.9)
[2022-03-25] MEDS: Famotidine 20 MG TABLET PO SCH (06:02)
[2022-03-25] MEDS: *HR* HYDROcodone/Acet 5/325 mg TABLET PO PRN (06:02)
[2022-03-25] MEDS: Sennosides/Docusate Sodium TABLET PO SCH (08:38)
[2022-03-25] MEDS: Aspirin Enteric Coated 81 MG Tablet PO SCH (08:39)
[2022-03-25] MEDS: Loratadine 10 MG TABLET PO SCH (08:39)
[2022-03-25] MEDS: Gabapentin 300 MG CAPSULE PO SCH (08:39)
[2022-03-25] MEDS ORDERED: Iron Sucrose Complex 200 MG in 0.9 % Sodium Chloride 100 ML IVPB SCH (09:00)
[2022-03-25 11:08] VITALS: BP 100/55; PULSE 77; TEMP 98.2; O2SAT 95
[2022-03-25 12:32] LABS: Influenza A PCR Negative (Negative); Influenza B PCR Negative (Negative); Resp. Syncytial Virus PCR Negative (Negative); SARS-CoV-2 by PCR (In House) Negative (Negative)
== END 2022-03-25 13:30 | disposition other institution (70) | DRG 853 ==
LOC: EMEROOARM 13:00 → SUATTDRO 18:29 → 2NNU 18:29 → ICNU 03-11 15:20 → 2NNU 03-14 00:17 → 3ANU 03-19 17:30
PROVIDERS: ADMIT Student in an Organized Health Care Education/Training Program; ATTEND Internal Medicine